=== PATIENT | female | born 1930 | race Two or more races ===

== ENCOUNTER → 2018-02-16 07:00 | Outpatient (CLI) | payer OTHER ==
[~2018-02-16 07:00] MED LIST: AVAPRO300 MG PO; TENORMIN25 MG PO
== END | disposition home or self-care (01) ==
LOC: LAB 07:00
DX: E03.8 Other specified hypothyroidism (principal); N39.0 Urinary tract infection, site not specified; I11.9 Hypertensive heart disease without heart failure; E78.4 Other hyperlipidemia; K92.2 Gastrointestinal hemorrhage, unspecified

== ENCOUNTER 2018-03-24 07:20 | Outpatient (CLI) | payer OTHER | END 2018-03-24 07:29 | disposition home or self-care (01) | LOC: SONOGRAMA 07:20 | DX: R74.0 Nonspecific elevation of levels of transaminase and lactic acid dehydrogenase [LDH] (principal) ==

== ENCOUNTER 2018-11-05 07:41 | Outpatient (CLI) | payer OTHER | END 2018-11-05 07:45 | disposition home or self-care (01) | LOC: LAB 07:41 | DX: N39.0 Urinary tract infection, site not specified (principal); K92.2 Gastrointestinal hemorrhage, unspecified; E03.8 Other specified hypothyroidism; I11.9 Hypertensive heart disease without heart failure; E78.49 Other hyperlipidemia ==

== ENCOUNTER 2018-12-01 07:42 | Outpatient (CLI) | payer OTHER | END 2018-12-01 07:50 | disposition home or self-care (01) | LOC: LAB 07:42 | DX: D68.8 Other specified coagulation defects (principal); H25.9 Unspecified age-related cataract ==

== ENCOUNTER 2018-12-10 07:17 | Outpatient (CLI) | payer OTHER | END 2018-12-10 07:26 | disposition home or self-care (01) | LOC: LAB 07:17 | DX: N39.0 Urinary tract infection, site not specified (principal); E87.5 Hyperkalemia ==

== ENCOUNTER 2019-03-28 07:28 | Outpatient (CLI) | payer OTHER | END 2019-03-28 07:44 | disposition home or self-care (01) | LOC: LAB 07:28 | DX: N39.0 Urinary tract infection, site not specified (principal) ==

== ENCOUNTER → 2019-04-26 06:55 | Outpatient (CLI) | payer OTHER | END | disposition home or self-care (01) | LOC: LAB 06:55 | DX: D68.8 Other specified coagulation defects (principal); H25.89 Other age-related cataract ==

== ENCOUNTER → 2019-04-26 08:13 | Outpatient (CLI) | payer OTHER | END | disposition home or self-care (01) | LOC: RAD 08:13 | DX: D68.8 Other specified coagulation defects (principal); H25.89 Other age-related cataract ==

== ENCOUNTER 2019-06-07 08:26 | Outpatient (CLI) | payer OTHER | END 2019-06-07 08:32 | disposition home or self-care (01) | LOC: LAB 08:26 | DX: N18.3 Chronic kidney disease, stage 3 (moderate) (principal) ==

== ENCOUNTER 2019-11-28 07:14 | Outpatient (CLI) | payer OTHER | END 2019-11-28 07:20 | disposition home or self-care (01) | LOC: LAB 07:14 | DX: E78.49 Other hyperlipidemia (principal); R73.01 Impaired fasting glucose; N18.2 Chronic kidney disease, stage 2 (mild); N39.0 Urinary tract infection, site not specified; K92.2 Gastrointestinal hemorrhage, unspecified; E03.8 Other specified hypothyroidism; E21.0 Primary hyperparathyroidism ==

== ENCOUNTER 2019-11-30 07:53 | Outpatient (CLI) | payer OTHER | END 2019-11-30 15:00 | disposition home or self-care (01) | LOC: LAB 07:53 | DX: E78.49 Other hyperlipidemia (principal); R73.01 Impaired fasting glucose; I10 Essential (primary) hypertension; N39.0 Urinary tract infection, site not specified; K92.2 Gastrointestinal hemorrhage, unspecified; E03.8 Other specified hypothyroidism; E21.0 Primary hyperparathyroidism ==

== ENCOUNTER 2020-01-29 19:02 | Inpatient (IN) | payer OTHER ==
[~2020-01-29] VITALS: Ht 152.4 cm; Wt 62.1 kg
[2020-01-29] MEDS ORDERED: ELIQUIS2.5 MG (19:07)
[2020-02-01] MEDS ORDERED: NORVASC2.5 M1 PO (09:30)
[2020-02-01] MEDS ORDERED: DULCOLAX10 MG RECTAL (09:30)
[2020-02-01] MEDS ORDERED: AVAPRO300 MG PO (09:30)
[2020-02-01] MEDS ORDERED: KAOPECTATE240 MG PO (09:30)
[2020-02-01] MEDS ORDERED: ELIQUIS2.5 MG PO (09:30)
== END 2020-02-01 16:41 | disposition home or self-care (01) | DRG 641 ==
LOC: ER 19:02 → SURH 01-30 12:18
PROVIDERS: ADMIT Internal Medicine
PROC: 4A12X4Z Monitoring of Cardiac Electrical Activity, External Approach (ICD-10-PCS; principal; 2020-01-30)
PROC: B246ZZZ Ultrasonography of Right and Left Heart (ICD-10-PCS; 2020-01-30)
PROC: B345ZZZ Ultrasonography of Bilateral Common Carotid Arteries (ICD-10-PCS; 2020-01-30)
PROC: B348ZZZ Ultrasonography of Bilateral Internal Carotid Arteries (ICD-10-PCS; 2020-01-30)
DX: E87.1 Hypo-osmolality and hyponatremia (principal); E86.0 Dehydration; K59.09 Other constipation; R55 Syncope and collapse